=== PATIENT | male | born 1970 | race Caucasian/White ===

== ENCOUNTER 2019-10-25 14:09 | Inpatient (IN) ==
[2019-10-25] MEDS ORDERED: SODIUM CHLORIDE 0.9% INJ SCH (15:00)
--- NOTE | 2019-10-25 15:02 | EKG Report ---
Test Performed on : 10/25/2019 2:56:07 PM Test Reason : chest pain Blood Pressure : / mmHG Vent. Rate : 060 BPM Atrial Rate : 060 BPM P-R Int : 144 ms QRS Dur : 100 ms QT Int : 414 ms P-R-T Axes : 016 062 029 degrees QTc Int : 414 ms Normal sinus rhythm. Possible Left atrial enlargement Borderline ECG No previous ECGs available Confirmed by Kirill Donnelly MD ([id number]) on 10/25/2019 4:01:58 PM
[2019-10-25] MEDS: ZOFRAN IV PRN (15:33)
[2019-10-25] MEDS: PROTONIX IV SCH (15:33)
[2019-10-25] MEDS: NS 1,000 ML IV SCH (15:34)
[2019-10-25 15:44] LABS: BASO# 0.04 X1000 (0.0-0.2); BASO% 0.8 % (0.0-0.8); EOS# 0.07 X1000 (0.0-0.7); EOS% 1.5 % (0.0-10.0); HEMATOCRIT 46.6 % (42.0-52.0); HEMOGLOBIN 16.5 g/dL (14.0-18.0); IMM GRAN# 0.06 X1000 (0.0-0.04); IMM GRAN% 1.3 % (0.0-0.5); LYMPH# 0.52 X1000 (1.2-3.4); MCH 28.5 PG (27-31); MCHC 35.4 g/dL (33-37); MCV 80.6 FL (81-99); MONO% 10.6 % (1.7-9.3); MPV 10.3 FL (7.4-10.4); NEUT# 3.53 X1000 (1.4-6.5); NEUT% 74.8 % (42.2-75.2); PLT 87 X1000 (130-400); RBC 5.78 XMIL (4.7-6.1); RDW 13.7 % (11.5-14.5); WBC 4.72 X1000 (4.8-10.8)
[2019-10-25 16:07] LABS: MAGNESIUM 1.7 mg/dL (1.5-2.7)
--- NOTE | 2019-10-25 16:38 | HISTORY AND PHYSICAL ---
CHIEF COMPLAINT: Nausea, vomiting, abdominal pain since Wednesday. HISTORY OF PRESENT ILLNESS: He is a 48-year-old white gentleman patient of mine came to the clinic today with a 3-day history of gastroenteritis symptoms. No fever. Upper abdominal pain and diarrhea last night. The patient was seen beginning of this year for hypertension. He had left ventricular hypertrophy. The patient was started on lisinopril. Outpatient stress test showed possible reversible ischemia versus attenuation defect. He denies any exertional chest pain. Ejection fraction 60%. In my office today, he was orthostatic. His BUN is 66, creatinine 2.7, sodium 132, potassium 3.1. CBC: White cell count 4, platelet count 82,000. He had a normal laboratory workup from a month ago. The patient admitted to the hospital for dehydration, acute kidney injury, hypovolemia. The patient was started on IV fluids and IV Nexium, Zofran and follow up on stool studies. He did not receive any prior history of antibiotics. PAST MEDICAL HISTORY: Hypertension, febrile seizures. PAST SURGICAL HISTORY: None. MEDICATIONS: Lisinopril. ALLERGIES: Not known. SOCIAL HISTORY: Single lives in [place]. Smoking 1 pack a day. No alcohol. 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 FAMILY HISTORY: Mom of COPD at 69. Father of stroke. He did receive flu vaccine 2018. REVIEW OF SYSTEMS: HEENT: Slight dizziness. No headache. No vision problem. No earache. No sore throat. Neck: No neck pain. No goiter. No lymphadenopathy. Cardiopulmonary: No chest pain, shortness of breath, PND, orthopnea. Gastrointestinal: Nausea, abdominal cramping, diarrhea. No fever. No blood in the stool. No prior antibiotic use. Genitourinary: No history of hesitancy, frequency, dysuria. No swelling of legs. No joint pain. Neurologic: No focal symptoms or weakness. OBJECTIVE: Vital Signs: Temperature 98.3 degrees, pulse 69, blood pressure 130/87, 99% room air. HEENT: Atraumatic, normocephalic. Pupils equal, react to light. TMs are normal. Dry mucous membranes. Neck: Supple. No lymphadenopathy. No goiter. Chest: Bilateral air entry. Heart: Sounds are regular. Belly is soft, nontender. No signs of peritonitis. Rectal: Deferred. Extremities: No peripheral edema. Neurologic: No obvious neurological deficits. INVESTIGATIONS: CBC: White cell count 4.7, hematocrit 46, platelet 87,000. Magnesium, amylase was normal. EKG: Normal sinus; nothing acute. ASSESSMENT AND PLAN: A 56-year-old white gentleman admitted to the hospital with 1. Gastroenteritis symptoms associated with hypovolemia, hyponatremia, acute kidney injury. Plan is IV fluids. Hold the lisinopril. Orthostatic blood pressure. 2. Thrombocytopenia. Follow up on the platelet count. 3. Follow up on stool studies. 4. Hypertension, heart disease off lisinopril at this time and abnormal nuclear scan. Currently asymptomatic and will follow up on the clinical course. EKG is normal and will discuss with the patient prior to the discharge and will follow up. cc: Jake Bose MD
[2019-10-26] MEDS: NS 1,000 ML IV SCH ×2 (05:51→20:47)
[2019-10-26] MEDS: ZOFRAN IV PRN ×2 (06:45→11:47)
[2019-10-26 07:47] LABS: ALBUMIN 3.3 g/dL (3.5-5.0); CREATININE 1.9 mg/dL (0.7-1.2); POTASSIUM 3.4 mmol/L (3.5-5.1); TOTAL BILIRUBIN 0.41 mg/dL (0.20-1.00); TOTAL PROTEIN 6.5 g/dL (6.3-8.3)
[2019-10-26] MEDS: POTASSIUM CHLORIDE 20 MEQ/SWI 20 MEQ/100 ML IVPB IV SCH ×2 (11:47→15:06)
[2019-10-26] MEDS: PROTONIX IV SCH (15:05)
--- NOTE | 2019-10-26 18:29 | PROGRESS NOTE ---
DATE: 10/26/2019 SUBJECTIVE: The patient is a little better. REVIEW OF SYSTEMS: None reported. Urine is getting cokeman. No chest pain. Slight nausea. PHYSICAL EXAMINATION: Vital Signs: Temperature is 98.4 degrees, pulse 65, blood pressure 137/80, oxygen saturation 93% on room air. HEENT: Within normal limits. Chest: Clear. Heart: Sounds are regular. Abdomen: Belly is soft, nontender. Good bowel sounds. Neurologic: No neurological deficits. LABS: CBC pending. SMA 7 with potassium of 3.4, creatinine 1.9. ASSESSMENT: 1. Gastroenteritis symptoms and dehydration. 2. Acute kidney injury. 3. Acid reflux disease. PLAN: Waiting for stool studies. Follow up on orthostatic blood pressure. Renal function tests improving. Continue clear liquids. Continue IV, PPI and Zofran and will follow up. LEVEL OF DOCUMENTATION: 25 minutes. cc: Jake Bose MD
[2019-10-27 07:08] LABS: BASO# 0.12 X1000 (0.0-0.2); EOS# 0.14 X1000 (0.0-0.7); EOS% 3.5 % (0.0-10.0); HEMATOCRIT 40.2 % (42.0-52.0); HEMOGLOBIN 13.8 g/dL (14.0-18.0); IMM GRAN# 0.03 X1000 (0.0-0.04); IMM GRAN% 0.7 % (0.0-0.5); LYMPH# 0.88 X1000 (1.2-3.4); LYMPH% 21.7 % (20.5-51.1); MCH 28.3 PG (27-31); MCHC 34.3 g/dL (33-37); MCV 82.5 FL (81-99); MONO# 1.25 X1000 (0.11-0.59); MONO% 30.9 % (1.7-9.3); MPV 11.5 FL (7.4-10.4); NEUT# 1.63 X1000 (1.4-6.5); NEUT% 40.2 % (42.2-75.2); PLT 52 X1000 (130-400); RBC 4.87 XMIL (4.7-6.1); RDW 13.3 % (11.5-14.5); WBC 4.05 X1000 (4.8-10.8)
[2019-10-27 07:34] LABS: LYMPHS 16 % (21-51); MONO 16 % (1-9); SEGS 52 % (42-75)
[2019-10-27 07:36] LABS: CALCIUM 8.5 mg/dL (8.8-10.2); CREATININE 1.3 mg/dL (0.7-1.2); MAGNESIUM 2.1 mg/dL (1.5-2.7); PHOSPHORUS 1.1 mg/dL (2.7-4.5); POTASSIUM 3.3 mmol/L (3.5-5.1)
[2019-10-27] MEDS ORDERED: POTASSIUM PHOSPHATE 30 MEQ in NS 250 ML IV ONE (09:00)
[2019-10-27] MEDS ORDERED: MIRALAX PO SCH (10:45)
[2019-10-27] MEDS: ZOFRAN IV PRN ×2 (11:08→16:47)
[2019-10-27] MEDS: PROTONIX IV SCH (15:14)
--- NOTE | 2019-10-27 15:26 | PROGRESS NOTE ---
DATE: 10/27/2019 SUBJECTIVE: The patient still has some heartburn. No diarrhea noted. Orthostatic blood pressures are stable. PHYSICAL EXAMINATION: Vital signs: Temperature 98 degrees, pulse is 80, 92% on room air. HEENT: Exam within normal limits. Neck: Supple. Chest: Clear. Heart: Heart sounds are regular. Abdomen: Belly is soft, nontender. INVESTIGATIONS: CBC: White cell count 4, hematocrit 40, platelets 52,000. Sodium 137, potassium 3.3, BUN 30, creatinine 1.3, phosphorus 1.1, magnesium 2.1. Cardiac enzymes were negative. ASSESSMENT AND PLAN: 1. Chest pain atypical, acid reflux disease. Continue Protonix, Zofran and IV fluids. 2. Acute kidney injury, improving. 3. Thrombocytopenia. Continue to monitor and slowly advance the diet over the weekend and replace the potassium and phosphate. We will hold the discharge. LEVEL OF DOCUMENTATION: 25 minutes. cc: Jake Bose MD
[2019-10-27] MEDS: NS 1,000 ML IV SCH ×2 (18:22→23:36)
[2019-10-28] MEDS: NS 1,000 ML IV SCH ×3 (04:57→20:22)
[2019-10-28 06:59] LABS: BASO# 0.04 X1000 (0.0-0.2); BASO% 0.9 % (0.0-0.8); EOS% 2.2 % (0.0-10.0); HEMATOCRIT 39.1 % (42.0-52.0); HEMOGLOBIN 13.2 g/dL (14.0-18.0); IMM GRAN# 0.04 X1000 (0.0-0.04); IMM GRAN% 0.9 % (0.0-0.5); LYMPH% 26.9 % (20.5-51.1); MCH 28.3 PG (27-31); MCHC 33.8 g/dL (33-37); MCV 83.7 FL (81-99); MONO# 1.46 X1000 (0.11-0.59); MONO% 32.7 % (1.7-9.3); MPV 12.4 FL (7.4-10.4); NEUT# 1.62 X1000 (1.4-6.5); NEUT% 36.4 % (42.2-75.2); PLT 52 X1000 (130-400); RBC 4.67 XMIL (4.7-6.1); RDW 13.1 % (11.5-14.5); WBC 4.46 X1000 (4.8-10.8)
[2019-10-28 07:00] LABS: AGAP 9; BUN 16 mg/dL (8-22); CALCIUM 8.3 mg/dL (8.8-10.2); CHLORIDE 102 mmol/L (98-107); COSMO 281; CREATININE 1.2 mg/dL (0.7-1.2); ESTIMATED GFR > 60; GLUCOSE 105 mg/dL (70-104); POTASSIUM 3.8 mmol/L (3.5-5.1); SODIUM 140 mmol/L (136-145); TCO2 29 mmol/L (25-35)
[2019-10-28 07:32] LABS: BANDS 4 % (0-1); LYMPHS 30 % (21-51); MONO 20 % (1-9); SEGS 44 % (42-75)
[2019-10-28] MEDS: MIRALAX PO SCH (08:29)
--- NOTE | 2019-10-28 12:44 | PROGRESS NOTE ---
DATE: 10/28/2019 SUBJECTIVE: The patient is getting better. No chest pain. No bowel movement. No diarrhea. OBJECTIVE: Vital signs: Temperature is 98 degrees. Hemodynamics were stable, 91% on room air. HEENT: Within normal limits. Neck: Supple. Chest: Clear. Heart: Sounds are regular. Abdomen: Belly is soft, nontender. Good bowel sounds. Neurologic: No neurological deficits. INVESTIGATIONS: White cell count 4, hematocrit 39, platelets 52,000. SMA-7 is normal. Cardiac enzymes were negative. ASSESSMENT AND PLAN: 1. Acute kidney injury, improving. 2. Gastroenteritis symptoms, better. 3. Thrombocytopenia, questionable etiology. 4. Hypertension, stable. PLAN OF CARE: Advance to GI soft diet and continue IV fluids and IV Protonix, and will restart the blood pressure medicine and will check the labs in the morning. LEVEL OF DOCUMENTATION: 25 minutes. cc: Jake Bose MD
[2019-10-28] MEDS: PROTONIX IV SCH (14:36)
[2019-10-29] MEDS: NS 1,000 ML IV SCH ×2 (05:41→18:31)
[2019-10-29 07:00] LABS: BASO# 0.03 X1000 (0.0-0.2); BASO% 0.7 % (0.0-0.8); EOS# 0.07 X1000 (0.0-0.7); EOS% 1.5 % (0.0-10.0); HEMATOCRIT 40.1 % (42.0-52.0); HEMOGLOBIN 13.5 g/dL (14.0-18.0); IMM GRAN# 0.04 X1000 (0.0-0.04); IMM GRAN% 0.9 % (0.0-0.5); LYMPH# 1.64 X1000 (1.2-3.4); LYMPH% 35.9 % (20.5-51.1); MCH 28.1 PG (27-31); MCHC 33.7 g/dL (33-37); MCV 83.4 FL (81-99); MONO# 1.17 X1000 (0.11-0.59); MONO% 25.6 % (1.7-9.3); MPV 12.8 FL (7.4-10.4); NEUT# 1.62 X1000 (1.4-6.5); NEUT% 35.4 % (42.2-75.2); PLT 83 X1000 (130-400); RBC 4.81 XMIL (4.7-6.1); RDW 13.3 % (11.5-14.5); WBC 4.57 X1000 (4.8-10.8)
[2019-10-29 07:14] LABS: AGAP 12; BUN 11 mg/dL (8-22); CALCIUM 8.7 mg/dL (8.8-10.2); CHLORIDE 103 mmol/L (98-107); COSMO 283; CREATININE 1.1 mg/dL (0.7-1.2); ESTIMATED GFR > 60; GLUCOSE 106 mg/dL (70-104); POTASSIUM 3.2 mmol/L (3.5-5.1); SODIUM 142 mmol/L (136-145); TCO2 27 mmol/L (25-35)
[2019-10-29 07:23] LABS: EOS 3 % (1-10); HYPOCHROM 1+; LYMPHS 37 % (21-51); MONO 17 % (1-9); SEGS 43 % (42-75)
[2019-10-29] MEDS: MIRALAX PO SCH (09:35)
--- NOTE | 2019-10-29 12:56 | PROGRESS NOTE ---
DATE: 10/29/2019 SUBJECTIVE: The patient is slowly getting better. No chest pain. Blood pressure is rising. OBJECTIVE: Vital Signs: Low-grade fever. Vitals are stable. Blood pressure 178/99. Chest: Clear. Heart: Sounds regular. Abdomen: Belly is soft, nontender. MICROBIOLOGY: Stool cultures: Clostridium difficile is negative, white cells none seen, occult blood negative. ASSESSMENT AND PLAN: 1. Gastroenteritis, improving. 2. Hypertension, off lisinopril. 3. Thrombocytopenia is better. 4. Advance the diet, and if he is stable tomorrow, will discharge in the morning. LEVEL OF DOCUMENTATION: 25 minutes. cc: Jake Bose MD
[2019-10-29] MEDS: PROTONIX IV SCH (15:53)
[2019-10-30] MEDS: NS 1,000 ML IV SCH ×2 (06:08→06:29)
[2019-10-30 07:15] LABS: BASO# 0.04 X1000 (0.0-0.2); BASO% 0.8 % (0.0-0.8); EOS% 2.1 % (0.0-10.0); HEMATOCRIT 40.9 % (42.0-52.0); HEMOGLOBIN 13.8 g/dL (14.0-18.0); IMM GRAN# 0.06 X1000 (0.0-0.04); IMM GRAN% 1.3 % (0.0-0.5); LYMPH# 1.75 X1000 (1.2-3.4); LYMPH% 36.6 % (20.5-51.1); MCH 28.2 PG (27-31); MCHC 33.7 g/dL (33-37); MCV 83.6 FL (81-99); MONO# 1.18 X1000 (0.11-0.59); MONO% 24.7 % (1.7-9.3); MPV 11.8 FL (7.4-10.4); NEUT# 1.65 X1000 (1.4-6.5); NEUT% 34.5 % (42.2-75.2); PLT 137 X1000 (130-400); RBC 4.89 XMIL (4.7-6.1); RDW 13.5 % (11.5-14.5); WBC 4.78 X1000 (4.8-10.8)
[2019-10-30 07:32] LABS: AGAP 11; BUN 12 mg/dL (8-22); CALCIUM 8.8 mg/dL (8.8-10.2); CHLORIDE 102 mmol/L (98-107); COSMO 281; CREATININE 1.1 mg/dL (0.7-1.2); ESTIMATED GFR > 60; GLUCOSE 106 mg/dL (70-104); POTASSIUM 3.4 mmol/L (3.5-5.1); SODIUM 141 mmol/L (136-145); TCO2 28 mmol/L (25-35)
[2019-10-30 08:14] VITALS: BP 181/111
[2019-10-30 08:15] LABS: BANDS 2 % (0-1); EOS 4 % (1-10); LYMPHS 36 % (21-51); MONO 18 % (1-9); SEGS 34 % (42-75)
[2019-10-30] MEDS: MIRALAX PO SCH (08:46)
--- NOTE | 2019-10-31 08:25 | DISCHARGE SUMMARY ---
ADMISSION DATE: 10/25/2019 DISCHARGE DATE: 10/30/2019 DISCHARGING DIAGNOSES: 1. Acute kidney injury due to intervascular volume depletion associated with gastroenteritis symptoms. 2. Thrombocytopenia resolving. 3. Hypertension. 4. Heart disease. 5. Acid reflux disease. 6. History of febrile seizures. BRIEF HISTORY: Please see the H and P that was done on 10/25/2019. In brief, he is a 48-year-old white gentleman who was admitted to the hospital with nausea, vomiting, and abdominal pain for the last few days. He was very orthostatic. His sodium level is 130, BUN 60, and creatinine 2.1. The patient was admitted to the hospital for IV fluids. During this hospital course, he did not have any loose bowel movements other than thrombocytopenia. Lisinopril was stopped. After hydration, renal function test came back normal. He has extensive acid reflux disease for which he was given Zofran and Protonix. Followup EKG and cardiac enzymes were negative. He has been tolerating GI soft diet very well. Rest of the hospital course was unremarkable. LABORATORY: White cell count 4.7, hematocrit 40, and platelets 137,000. Sodium 140, potassium 3.4, BUN 12, creatinine 1.1, glucose 106, and liver function tests were normal. X-rays outpatient showed possible kidney stones on the left side. DISCHARGE INSTRUCTIONS: 1. Continue GI soft diet. Hold the lisinopril for 1 week. 2. Protonix 40 daily and Zofran for p.r.n. nausea and probiotics. 3. Follow up in my office. 4. Next week we will give an excuse for work until next Wednesday. cc: Jake Bose MD
== END 2019-10-30 10:39 | disposition home or self-care (01) | DRG 641 ==
LOC: DIRADM 14:09 → EDIPHOLD 14:39 → 3N 18:10
PROVIDERS: ADMIT Internal Medicine; ATTEND Internal Medicine